=== PATIENT | male | born 1945 | race African-American/Black ===

== ENCOUNTER 2020-08-13 20:47 | Inpatient (IN) | payer OTHER ==
[~2020-08-13] VITALS: Ht 177.8 cm; Wt 78.0 kg
[2020-08-13] MEDS ORDERED: PANTOPRAZOLE 40 MG/10 ML VIAL INJ IV ONE (21:15)
[2020-08-13] MEDS ORDERED: PANTOPRAZOLE 40mg/50ML NS AE 50 ML IV ONE (21:15)
[2020-08-13] MEDS ORDERED: AMLO-496 PO (21:31)
[2020-08-13] MEDS ORDERED: CLON0.2T PO (21:35)
[2020-08-13] MEDS ORDERED: MET50T PO (21:35)
[2020-08-13] MEDS ORDERED: METF-370 PO (21:35)
[2020-08-13] MEDS ORDERED: LISI40TA11 PO (21:35)
[2020-08-13 22:18] LABS: Basophils # (auto) 0 10 ^3/uL (0-0.2); Basophils % (auto) 0.6 % (0.0-2.0); Eosinophils # (auto) 0 10 ^3/uL (0-0.8); Mean Corpuscular Volume 80.1 fL (80.0-100.0); Monocytes # (auto) 0.4 10 ^3/uL (0-1.3); Monocytes % (auto) 6.1 % (0.0-12.0); Nucleated Red Blood Cells % 0.1 %
[2020-08-13 22:20] LABS: Eosinophils % (auto) 0.7 % (0.0-7.0); Hematocrit 18.4 % (41.0-53.0); Lymphocytes # (auto) 0.8 10 ^3/uL (0.4-5.4); Lymphocytes % (auto) 12.8 % (10.0-50.0); Mean Corpuscular Hgb Conc. 36.2 g/dL (32.0-36.0); Neutrophils # (auto) 4.8 10 ^3/uL (1.6-8.6); Neutrophils % (auto) 79.8 % (37.0-80.0); Red Blood Cells 2.29 10^6/uL (4.5-5.90); Red Cell Distribution Width 15.6 % (11.8-14.3)
[2020-08-13 22:27] LABS: Hemoglobin 6.7 g/dL (13.5-17.5)
[2020-08-13 22:34] LABS: Potassium 4.4 mmol/L (3.5-5.1)
[2020-08-13 22:42] LABS: INR 1.07 (0.9-1.15)
[2020-08-13 22:45] LABS: Albumin 3.2 g/dL (3.4-5.0); BUN/Creatinine Ratio 8.3; Bilirubin, Total 0.8 mg/dL (0.2-1.0); Calcium 7.7 mg/dL (8.5-10.1); Total Protein 6.1 g/dL (6.4-8.2)
[2020-08-13] MEDS ORDERED: SODIUM CHL 3% 500 ML IV ONE (23:15)
[2020-08-13] MEDS ORDERED: SODIUM CHLORIDE 0.9% 1,000 ML IV ONE (23:30)
[2020-08-14] VITALS (12 sets, daily range): BP systolic 124–164; BP diastolic 62–96
[2020-08-14] MEDS ORDERED: NITROGLYCERIN 0.4 MG SL TAB SL PRN ×2 (00:30→10:45)
[2020-08-14] MEDS ORDERED: ONDANSETRON HCL 4 MG/2 ML VIAL IV PRN (00:30)
[2020-08-14] MEDS ORDERED: MORPHINE SULFATE INJECTION 2 MG/ML SYRG IV PRN ×3 (00:30→10:45)
[2020-08-14] MEDS ORDERED: SODIUM CHLORIDE 0.9% 1,000 ML IV ONE (00:30)
[2020-08-14] MEDS: CALCIUM GLUC 4.65meq/50ml D5AE 50 ML IV SCH ×2 (05:30→14:00)
[2020-08-14] MEDS ORDERED: SODIUM CHL 3% 500 ML IV ONE (07:30)
[2020-08-14] MEDS: PANTOPRAZOLE 40 MG/10 ML VIAL INJ IV SCH ×2 (08:34→22:09)
[2020-08-14 13:26] LABS: Basophils # (auto) 0 10 ^3/uL (0-0.2); Basophils % (auto) 0.3 % (0.0-2.0); Eosinophils # (auto) 0 10 ^3/uL (0-0.8); Hematocrit 28.4 % (41.0-53.0); Hemoglobin 9.9 g/dL (13.5-17.5); Lymphocytes # (auto) 0.2 10 ^3/uL (0.4-5.4); Lymphocytes % (auto) 2.5 % (10.0-50.0); Mean Corpuscular Hemoglobin 28.4 pg (28.0-32.0); Mean Corpuscular Hgb Conc. 34.7 g/dL (32.0-36.0); Mean Corpuscular Volume 81.8 fL (80.0-100.0); Monocytes # (auto) 0.3 10 ^3/uL (0-1.3); Monocytes % (auto) 4.4 % (0.0-12.0); Neutrophils # (auto) 6.6 10 ^3/uL (1.6-8.6); Neutrophils % (auto) 92.8 % (37.0-80.0); Red Blood Cells 3.48 10^6/uL (4.5-5.90); Red Cell Distribution Width 15.3 % (11.8-14.3); White Blood Cell 7.1 10^3/uL (4.4-10.8)
[2020-08-14 13:40] LABS: Protein, Urine 17.9 mg/dL (0.0-11.9)
[2020-08-14 13:49] LABS: Potassium 3.3 mmol/L (3.5-5.1)
[2020-08-14 13:58] LABS: Albumin 3.6 g/dL (3.4-5.0); BUN/Creatinine Ratio 9.3; Bilirubin, Total 1.6 mg/dL (0.2-1.0); Calcium 8.5 mg/dL (8.5-10.1); Total Protein 6.8 g/dL (6.4-8.2)
[2020-08-14 15:08] LABS: % Iron Saturation 28.1 % (20-55)
[2020-08-14 15:21] LABS: Folate (Folic Acid) 19.9 ng/mL (5.38-24)
[2020-08-14] MEDS ORDERED: DEXTROSE (50%) 50ML SYRG IV PRN (22:45)
[2020-08-14] MEDS: ACCU-CHEK COMFORT CURVE STRIP VI SCH (23:55)
[2020-08-14] MEDS: InsuLIN REG 1unit/0.01ml Soln (100units/ml) SC SCH (23:56)
[2020-08-15] MEDS ORDERED: dilTIAZem 25 MG/5 ML VIAL IV ONE (04:45)
[2020-08-15 05:00] VITALS: BP 142/84
[2020-08-15] MEDS: ACCU-CHEK COMFORT CURVE STRIP VI SCH ×3 (05:56→17:09)
[2020-08-15] MEDS: InsuLIN REG 1unit/0.01ml Soln (100units/ml) SC SCH ×3 (05:56→18:00)
[2020-08-15 06:05] LABS: Basophils # (auto) 0 10 ^3/uL (0-0.2); Basophils % (auto) 0.3 % (0.0-2.0); Eosinophils # (auto) 0 10 ^3/uL (0-0.8); Eosinophils % (auto) 0.1 % (0.0-7.0); Hematocrit 32.6 % (41.0-53.0); Hemoglobin 11.4 g/dL (13.5-17.5); Lymphocytes # (auto) 0.3 10 ^3/uL (0.4-5.4); Lymphocytes % (auto) 3.4 % (10.0-50.0); Mean Corpuscular Hemoglobin 28.8 pg (28.0-32.0); Mean Corpuscular Hgb Conc. 35.1 g/dL (32.0-36.0); Mean Corpuscular Volume 82.1 fL (80.0-100.0); Monocytes # (auto) 0.5 10 ^3/uL (0-1.3); Monocytes % (auto) 5.5 % (0.0-12.0); Neutrophils # (auto) 8.8 10 ^3/uL (1.6-8.6); Neutrophils % (auto) 90.7 % (37.0-80.0); Nucleated Red Blood Cells % 0.1 %; Red Blood Cells 3.97 10^6/uL (4.5-5.90); Red Cell Distribution Width 15.6 % (11.8-14.3); White Blood Cell 9.7 10^3/uL (4.4-10.8)
[2020-08-15 06:24] LABS: Calcium 8.9 mg/dL (8.5-10.1); Potassium 3.8 mmol/L (3.5-5.1)
[2020-08-15 06:27] LABS: BUN/Creatinine Ratio 7.5; Phosphorus 5.2 mg/dL (2.5-4.90)
[2020-08-15 09:00] VITALS: BP 137/85
[2020-08-15] MEDS ORDERED: AMIODARONE HCL 150 MG in D5W 5% 100 ML IV ONE (09:15)
[2020-08-15] MEDS ORDERED: AMIODARONE 450mg/250ml AE 250 ML IV SCH ×2 (09:30→15:30)
[2020-08-15] MEDS: PANTOPRAZOLE 40 MG/10 ML VIAL INJ IV SCH ×2 (11:02→22:23)
[2020-08-15] MEDS: SEVELAMER 800 MG TAB PO SCH ×2 (12:00→18:00)
[2020-08-15 13:00] VITALS: BP 127/85
[2020-08-15 17:00] VITALS: BP 132/83
[2020-08-15] MEDS: PIPERACILLIN-TAZOB 2.25GM 50 ML IV SCH (18:00)
[2020-08-15 20:00] VITALS: BP 120/85
[2020-08-16] VITALS (11 sets, daily range): BP systolic 116–147; BP diastolic 76–119
[2020-08-16] MEDS: PIPERACILLIN-TAZOB 2.25GM 50 ML IV SCH ×4 (00:27→18:09)
[2020-08-16] MEDS: ACCU-CHEK COMFORT CURVE STRIP VI SCH ×4 (00:28→18:08)
[2020-08-16] MEDS ORDERED: DIGOXIN (250MCG/ML) 2 ML AMPULE IV ONE ×2 (02:45→12:45)
[2020-08-16] MEDS ORDERED: AMIODARONE HCL 150 MG in D5W 5% 100 ML IV ONE (02:45)
[2020-08-16] MEDS ORDERED: AMIODARONE 450mg/250ml AE 250 ML IV SCH ×4 (03:00→21:00)
[2020-08-16] MEDS ORDERED: AMIODARONE HCL (50 MG/ ML) 3 ML VIAL IV ONE (03:25)
[2020-08-16 05:48] LABS: Basophils # (auto) 0 10 ^3/uL (0-0.2); Basophils % (auto) 0.5 % (0.0-2.0); Eosinophils # (auto) 0 10 ^3/uL (0-0.8); Eosinophils % (auto) 0.3 % (0.0-7.0); Hematocrit 29.4 % (41.0-53.0); Hemoglobin 10.5 g/dL (13.5-17.5); Lymphocytes # (auto) 0.5 10 ^3/uL (0.4-5.4); Lymphocytes % (auto) 6.3 % (10.0-50.0); Mean Corpuscular Hemoglobin 28.8 pg (28.0-32.0); Mean Corpuscular Hgb Conc. 35.8 g/dL (32.0-36.0); Mean Corpuscular Volume 80.6 fL (80.0-100.0); Monocytes # (auto) 0.5 10 ^3/uL (0-1.3); Monocytes % (auto) 6.4 % (0.0-12.0); Neutrophils # (auto) 7.3 10 ^3/uL (1.6-8.6); Neutrophils % (auto) 86.5 % (37.0-80.0); Red Blood Cells 3.64 10^6/uL (4.5-5.90); Red Cell Distribution Width 15.9 % (11.8-14.3); White Blood Cell 8.4 10^3/uL (4.4-10.8)
[2020-08-16] MEDS: InsuLIN REG 1unit/0.01ml Soln (100units/ml) SC SCH ×4 (06:00→18:00)
[2020-08-16 06:10] LABS: BUN/Creatinine Ratio 8.6; Calcium 8.2 mg/dL (8.5-10.1); Potassium 3.6 mmol/L (3.5-5.1)
[2020-08-16] MEDS: SEVELAMER 800 MG TAB PO SCH (08:55)
[2020-08-16] MEDS: PANTOPRAZOLE 40 MG/10 ML VIAL INJ IV SCH ×2 (08:56→21:27)
[2020-08-16] MEDS: AMIODARONE 450mg/250ml AE 250 ML IV SCH (21:18)
[2020-08-17] MEDS ORDERED: METOPROLOL TARTRATE 25 MG TAB PO ONE (03:15)
[2020-08-17] MEDS ORDERED: DIGOXIN (250MCG/ML) 2 ML AMPULE IV ONE (03:15)
[2020-08-17] MEDS: ACETAMINOPHEN 325 MG TAB PO PRN ×2 (03:31→21:49)
[2020-08-17] MEDS: AMIODARONE 450mg/250ml AE 250 ML IV SCH ×3 (04:55→19:58)
[2020-08-17 05:20] VITALS: BP 138/94
[2020-08-17 05:53] LABS: Basophils # (auto) 0 10 ^3/uL (0-0.2); Basophils % (auto) 0.3 % (0.0-2.0); Eosinophils # (auto) 0 10 ^3/uL (0-0.8); Eosinophils % (auto) 0.3 % (0.0-7.0); Hemoglobin 10.8 g/dL (13.5-17.5); Lymphocytes # (auto) 0.6 10 ^3/uL (0.4-5.4); Lymphocytes % (auto) 6.1 % (10.0-50.0); Mean Corpuscular Hemoglobin 28.6 pg (28.0-32.0); Mean Corpuscular Hgb Conc. 34.9 g/dL (32.0-36.0); Mean Corpuscular Volume 81.9 fL (80.0-100.0); Monocytes # (auto) 0.8 10 ^3/uL (0-1.3); Neutrophils # (auto) 7.9 10 ^3/uL (1.6-8.6); Neutrophils % (auto) 84.3 % (37.0-80.0); Nucleated Red Blood Cells % 0.1 %; Red Blood Cells 3.78 10^6/uL (4.5-5.90); Red Cell Distribution Width 15.4 % (11.8-14.3); White Blood Cell 9.4 10^3/uL (4.4-10.8)
[2020-08-17] MEDS: InsuLIN REG 1unit/0.01ml Soln (100units/ml) SC SCH ×4 (06:00→18:36)
[2020-08-17 06:08] LABS: BUN/Creatinine Ratio 7.8; Calcium 8.2 mg/dL (8.5-10.1); Potassium 3.8 mmol/L (3.5-5.1)
[2020-08-17] MEDS: ACCU-CHEK COMFORT CURVE STRIP VI SCH ×4 (06:18→18:27)
[2020-08-17] MEDS: PIPERACILLIN-TAZOB 2.25GM 50 ML IV SCH ×4 (06:19→12:42)
[2020-08-17 08:00] VITALS: BP_SYST 84; BP_SYST 90; BP_DIAS 60; BP_DIAS 71
[2020-08-17] MEDS: PANTOPRAZOLE 40 MG/10 ML VIAL INJ IV SCH ×2 (09:51→21:49)
[2020-08-17] MEDS: METOPROLOL TARTRATE 25 MG TAB PO SCH ×2 (09:56→19:59)
[2020-08-17] MEDS ORDERED: FUROSEMIDE 40 MG/4 ML VIAL IV ONE (10:45)
[2020-08-17] MEDS: ALBUMIN 25% 100 ML IV SCH ×2 (11:00→21:49)
[2020-08-17 13:00] VITALS: BP 122/81
[2020-08-17 17:25] VITALS: BP 118/73
[2020-08-17 21:00] VITALS: BP 130/76
[2020-08-17 21:30] VITALS: BP 126/66
[2020-08-17] MEDS ORDERED: MIDODRINE HCL 10 MG TAB PO SCH (22:00)
[2020-08-18] MEDS: ACCU-CHEK COMFORT CURVE STRIP VI SCH ×4 (00:12→17:43)
[2020-08-18] MEDS: PIPERACILLIN-TAZOB 2.25GM 50 ML IV SCH ×4 (00:12→18:30)
[2020-08-18] MEDS: AMIODARONE 450mg/250ml AE 250 ML IV SCH ×4 (03:21→23:10)
[2020-08-18 05:00] VITALS: BP 136/91
[2020-08-18] MEDS: InsuLIN REG 1unit/0.01ml Soln (100units/ml) SC SCH ×4 (05:24→17:43)
[2020-08-18 06:16] LABS: Basophils # (auto) 0 10 ^3/uL (0-0.2); Basophils % (auto) 0.3 % (0.0-2.0); Eosinophils # (auto) 0 10 ^3/uL (0-0.8); Eosinophils % (auto) 0.4 % (0.0-7.0); Hematocrit 31.6 % (41.0-53.0); Hemoglobin 10.9 g/dL (13.5-17.5); Lymphocytes # (auto) 0.7 10 ^3/uL (0.4-5.4); Lymphocytes % (auto) 6.7 % (10.0-50.0); Mean Corpuscular Hemoglobin 28.4 pg (28.0-32.0); Mean Corpuscular Hgb Conc. 34.4 g/dL (32.0-36.0); Mean Corpuscular Volume 82.5 fL (80.0-100.0); Monocytes # (auto) 0.8 10 ^3/uL (0-1.3); Monocytes % (auto) 7.8 % (0.0-12.0); Neutrophils # (auto) 8.9 10 ^3/uL (1.6-8.6); Neutrophils % (auto) 84.8 % (37.0-80.0); Red Blood Cells 3.83 10^6/uL (4.5-5.90); Red Cell Distribution Width 15.4 % (11.8-14.3); White Blood Cell 10.5 10^3/uL (4.4-10.8)
[2020-08-18 06:35] LABS: Potassium 3.5 mmol/L (3.5-5.1)
[2020-08-18 06:50] LABS: BUN/Creatinine Ratio 11.6; Calcium 7.9 mg/dL (8.5-10.1)
[2020-08-18 07:54] VITALS: BP 135/82
[2020-08-18 08:00] VITALS: BP 138/86
[2020-08-18] MEDS ORDERED: MIDODRINE HCL 10 MG TAB PO SCH (08:00)
[2020-08-18] MEDS: MIDODRINE HCL 10 MG TAB PO SCH ×2 (08:00→16:00)
[2020-08-18] MEDS ORDERED: DIGOXIN (250MCG/ML) 2 ML AMPULE IV ONE (08:30)
[2020-08-18] MEDS: PANTOPRAZOLE 40 MG/10 ML VIAL INJ IV SCH ×2 (08:53→21:56)
[2020-08-18] MEDS: METOPROLOL TARTRATE 25 MG TAB PO SCH ×2 (08:53→22:42)
[2020-08-18] MEDS ORDERED: SODIUM CHL 3% 300 ML IV ONE (13:15)
[2020-08-18] MEDS: ALBUMIN 25% 100 ML IV SCH ×2 (14:24→22:42)
[2020-08-18] MEDS: ACETAMINOPHEN 325 MG TAB PO PRN (14:25)
[2020-08-18 14:39] LABS: Basophils # (auto) 0 10 ^3/uL (0-0.2); Basophils % (auto) 0.4 % (0.0-2.0); Eosinophils # (auto) 0 10 ^3/uL (0-0.8); Eosinophils % (auto) 0.3 % (0.0-7.0); Hematocrit 30.8 % (41.0-53.0); Hemoglobin 10.6 g/dL (13.5-17.5); Lymphocytes # (auto) 0.5 10 ^3/uL (0.4-5.4); Lymphocytes % (auto) 4.7 % (10.0-50.0); Mean Corpuscular Hemoglobin 28.3 pg (28.0-32.0); Mean Corpuscular Hgb Conc. 34.3 g/dL (32.0-36.0); Mean Corpuscular Volume 82.6 fL (80.0-100.0); Monocytes # (auto) 0.9 10 ^3/uL (0-1.3); Monocytes % (auto) 7.8 % (0.0-12.0); Neutrophils % (auto) 86.8 % (37.0-80.0); Red Blood Cells 3.73 10^6/uL (4.5-5.90); Red Cell Distribution Width 15.4 % (11.8-14.3); White Blood Cell 11.5 10^3/uL (4.4-10.8)
[2020-08-18 14:56] LABS: Calcium 8.7 mg/dL (8.5-10.1); Potassium 3.7 mmol/L (3.5-5.1)
[2020-08-18 15:43] LABS: BUN/Creatinine Ratio 10.7
[2020-08-18 16:09] VITALS: BP 151/92
[2020-08-18] MEDS ORDERED: SODIUM CHL 3% 500 ML IV ONE (20:15)
[2020-08-18 22:00] VITALS: BP 135/97
[2020-08-19] VITALS (7 sets, daily range): BP systolic 91–154; BP diastolic 64–84
[2020-08-19] MEDS: ACCU-CHEK COMFORT CURVE STRIP VI SCH ×4 (00:30→17:25)
[2020-08-19] MEDS: ALBUMIN 25% 100 ML IV SCH (05:28)
[2020-08-19] MEDS: InsuLIN REG 1unit/0.01ml Soln (100units/ml) SC SCH ×4 (05:29→17:24)
[2020-08-19] MEDS: PIPERACILLIN-TAZOB 2.25GM 50 ML IV SCH ×3 (05:30→15:12)
[2020-08-19] MEDS: AMIODARONE 450mg/250ml AE 250 ML IV SCH ×2 (06:03→12:46)
[2020-08-19] MEDS: ACETAMINOPHEN 325 MG TAB PO PRN (06:03)
[2020-08-19 07:53] LABS: Basophils # (auto) 0.1 10 ^3/uL (0-0.2); Basophils % (auto) 0.4 % (0.0-2.0); Eosinophils # (auto) 0 10 ^3/uL (0-0.8); Eosinophils % (auto) 0.3 % (0.0-7.0); Hematocrit 27.4 % (41.0-53.0); Hemoglobin 9.4 g/dL (13.5-17.5); Lymphocytes # (auto) 0.7 10 ^3/uL (0.4-5.4); Lymphocytes % (auto) 5.5 % (10.0-50.0); Mean Corpuscular Hemoglobin 28.1 pg (28.0-32.0); Mean Corpuscular Hgb Conc. 34.2 g/dL (32.0-36.0); Mean Corpuscular Volume 82.3 fL (80.0-100.0); Monocytes # (auto) 0.8 10 ^3/uL (0-1.3); Monocytes % (auto) 6.8 % (0.0-12.0); Neutrophils # (auto) 10.4 10 ^3/uL (1.6-8.6); Red Blood Cells 3.33 10^6/uL (4.5-5.90); Red Cell Distribution Width 15.4 % (11.8-14.3)
[2020-08-19 08:14] LABS: Calcium 8.8 mg/dL (8.5-10.1); Potassium 3.5 mmol/L (3.5-5.1)
[2020-08-19 08:18] LABS: BUN/Creatinine Ratio 11.5
[2020-08-19] MEDS: MIDODRINE HCL 10 MG TAB PO SCH ×2 (08:45→16:56)
[2020-08-19] MEDS: PANTOPRAZOLE 40 MG/10 ML VIAL INJ IV SCH ×2 (10:44→22:20)
[2020-08-19] MEDS ORDERED: LIDOCAINE 2% JELLY 11ml (GLYDO) UR ONE (11:00)
[2020-08-19] MEDS: METOPROLOL TARTRATE 25 MG TAB PO SCH ×2 (11:37→22:22)
[2020-08-19] MEDS: DIGOXIN 0.125 MG TAB PO SCH (12:46)
[2020-08-19] MEDS: AMIODARONE HCL 200 MG TAB PO SCH (22:21)
[2020-08-20] MEDS: ACCU-CHEK COMFORT CURVE STRIP VI SCH ×4 (00:12→18:00)
[2020-08-20] MEDS: InsuLIN REG 1unit/0.01ml Soln (100units/ml) SC SCH ×4 (06:00→18:00)
[2020-08-20 06:05] LABS: Basophils # (auto) 0.1 10 ^3/uL (0-0.2); Basophils % (auto) 0.5 % (0.0-2.0); Eosinophils # (auto) 0 10 ^3/uL (0-0.8); Eosinophils % (auto) 0.3 % (0.0-7.0); Hematocrit 28.2 % (41.0-53.0); Hemoglobin 9.6 g/dL (13.5-17.5); Lymphocytes # (auto) 0.7 10 ^3/uL (0.4-5.4); Lymphocytes % (auto) 5.5 % (10.0-50.0); Mean Corpuscular Hemoglobin 28.1 pg (28.0-32.0); Mean Corpuscular Hgb Conc. 34.2 g/dL (32.0-36.0); Mean Corpuscular Volume 82.1 fL (80.0-100.0); Monocytes # (auto) 0.8 10 ^3/uL (0-1.3); Monocytes % (auto) 6.2 % (0.0-12.0); Neutrophils # (auto) 10.8 10 ^3/uL (1.6-8.6); Neutrophils % (auto) 87.5 % (37.0-80.0); Red Blood Cells 3.43 10^6/uL (4.5-5.90); Red Cell Distribution Width 15.8 % (11.8-14.3); White Blood Cell 12.3 10^3/uL (4.4-10.8)
[2020-08-20 06:26] LABS: BUN/Creatinine Ratio 14.3; Calcium 8.6 mg/dL (8.5-10.1); Potassium 3.6 mmol/L (3.5-5.1)
[2020-08-20 08:00] VITALS: BP 136/68
[2020-08-20] MEDS: MIDODRINE HCL 10 MG TAB PO SCH (08:00)
[2020-08-20] MEDS: DIGOXIN 0.125 MG TAB PO SCH (09:17)
[2020-08-20] MEDS: PANTOPRAZOLE 40 MG/10 ML VIAL INJ IV SCH ×2 (09:18→21:11)
[2020-08-20] MEDS: AMIODARONE HCL 200 MG TAB PO SCH (09:18)
[2020-08-20] MEDS: METOPROLOL TARTRATE 25 MG TAB PO SCH ×2 (09:19→21:11)
[2020-08-20] MEDS: AMIODARONE 450mg/250ml AE 250 ML IV SCH ×2 (10:43→18:44)
[2020-08-20 13:20] VITALS: BP 144/83
[2020-08-20 16:43] VITALS: BP 153/78
[2020-08-20] MEDS: PIPERACILLIN-TAZOB 3.375GM 100 ML IV SCH (21:11)
[2020-08-20 21:46] VITALS: BP 142/84
[2020-08-21] MEDS: AMIODARONE 450mg/250ml AE 250 ML IV SCH ×4 (01:02→23:19)
[2020-08-21] MEDS: PIPERACILLIN-TAZOB 3.375GM 100 ML IV SCH ×4 (02:56→21:09)
[2020-08-21 05:00] VITALS: BP 150/88
[2020-08-21 05:33] LABS: Basophils % (auto) 0.4 % (0.0-2.0); Eosinophils # (auto) 0 10 ^3/uL (0-0.8); Hemoglobin 9.5 g/dL (13.5-17.5); Lymphocytes # (auto) 0.6 10 ^3/uL (0.4-5.4); Mean Corpuscular Hemoglobin 27.8 pg (28.0-32.0); Neutrophils # (auto) 10.1 10 ^3/uL (1.6-8.6); Red Blood Cells 3.41 10^6/uL (4.5-5.90)
[2020-08-21 05:35] LABS: Basophils # (auto) 0 10 ^3/uL (0-0.2); Eosinophils % (auto) 0.3 % (0.0-7.0); Hematocrit 28.2 % (41.0-53.0); Lymphocytes % (auto) 4.9 % (10.0-50.0); Mean Corpuscular Hgb Conc. 33.6 g/dL (32.0-36.0); Mean Corpuscular Volume 82.7 fL (80.0-100.0); Monocytes # (auto) 0.9 10 ^3/uL (0-1.3); Monocytes % (auto) 7.6 % (0.0-12.0); Neutrophils % (auto) 86.8 % (37.0-80.0); Red Cell Distribution Width 16.1 % (11.8-14.3); White Blood Cell 11.6 10^3/uL (4.4-10.8)
[2020-08-21 05:58] LABS: BUN/Creatinine Ratio 17.1; Calcium 8.8 mg/dL (8.5-10.1); Potassium 3.6 mmol/L (3.5-5.1)
[2020-08-21] MEDS: InsuLIN REG 1unit/0.01ml Soln (100units/ml) SC SCH ×5 (06:00→23:18)
[2020-08-21] MEDS: ACCU-CHEK COMFORT CURVE STRIP VI SCH ×5 (06:10→23:18)
[2020-08-21 09:00] VITALS: BP 141/106
[2020-08-21] MEDS ORDERED: GADOTERATE MEG 7.5 MMOL/15ml INJ (0.5MMOL/ml) IV ONE (09:03)
[2020-08-21] MEDS: DIGOXIN 0.125 MG TAB PO SCH (09:50)
[2020-08-21] MEDS: PANTOPRAZOLE 40 MG/10 ML VIAL INJ IV SCH ×2 (09:51→21:09)
[2020-08-21] MEDS: METOPROLOL TARTRATE 25 MG TAB PO SCH ×2 (09:51→21:10)
[2020-08-21] MEDS ORDERED: METOPROLOL TARTRATE 50 MG TAB PO ONE (12:15)
[2020-08-21 12:47] VITALS: BP 151/83
[2020-08-21 16:33] VITALS: BP 143/90
[2020-08-21 20:00] VITALS: BP 156/92
[2020-08-21 22:26] VITALS: BP 156/92
[2020-08-22] MEDS: PIPERACILLIN-TAZOB 3.375GM 100 ML IV SCH ×5 (03:16→19:00)
[2020-08-22 05:00] VITALS: BP 163/81
[2020-08-22 05:14] LABS: Eosinophils # (auto) 0.1 10 ^3/uL (0-0.8); Hemoglobin 8.7 g/dL (13.5-17.5); Monocytes # (auto) 0.7 10 ^3/uL (0-1.3); Red Cell Distribution Width 16.2 % (11.8-14.3)
[2020-08-22 05:16] LABS: Basophils # (auto) 0 10 ^3/uL (0-0.2); Basophils % (auto) 0.5 % (0.0-2.0); Eosinophils % (auto) 0.7 % (0.0-7.0); Hematocrit 24.9 % (41.0-53.0); Lymphocytes # (auto) 0.5 10 ^3/uL (0.4-5.4); Lymphocytes % (auto) 5.7 % (10.0-50.0); Mean Corpuscular Hemoglobin 28.6 pg (28.0-32.0); Mean Corpuscular Hgb Conc. 34.8 g/dL (32.0-36.0); Mean Corpuscular Volume 82.3 fL (80.0-100.0); Neutrophils # (auto) 8.1 10 ^3/uL (1.6-8.6); Neutrophils % (auto) 86.1 % (37.0-80.0); Red Blood Cells 3.02 10^6/uL (4.5-5.90); White Blood Cell 9.4 10^3/uL (4.4-10.8)
[2020-08-22 05:31] LABS: Calcium 8.7 mg/dL (8.5-10.1); Potassium 3.6 mmol/L (3.5-5.1)
[2020-08-22 05:34] LABS: BUN/Creatinine Ratio 16.8
[2020-08-22] MEDS: InsuLIN REG 1unit/0.01ml Soln (100units/ml) SC SCH ×4 (06:00→23:42)
[2020-08-22] MEDS: ACCU-CHEK COMFORT CURVE STRIP VI SCH ×4 (06:00→23:42)
[2020-08-22] MEDS: AMIODARONE 450mg/250ml AE 250 ML IV SCH ×3 (06:35→21:58)
[2020-08-22 08:00] VITALS: BP 156/95
[2020-08-22 09:00] VITALS: BP 156/95
[2020-08-22] MEDS: PANTOPRAZOLE 40 MG/10 ML VIAL INJ IV SCH (09:23)
[2020-08-22] MEDS: METOPROLOL TARTRATE 25 MG TAB PO SCH ×2 (09:24→22:04)
[2020-08-22 12:00] VITALS: BP 150/80
[2020-08-22] MEDS ORDERED: LIDOCAINE VISCOUS 2% 15ML UD ONE (12:05)
[2020-08-22] MEDS ORDERED: diphenhdrAMINE HCL 50 MG/1 ML VL ONE (12:06)
[2020-08-22] MEDS ORDERED: fentaNYL CITRATE 100 MCG/2 ML VL ONE (12:06)
[2020-08-22] MEDS ORDERED: MIDAZOLAM HCL 5 MG/ML-1ML VIAL ONE (12:06)
[2020-08-22] MEDS ORDERED: LIDOCAINE VISCOUS 2% 15ML UD MT ONE (13:18)
[2020-08-22] MEDS ORDERED: MIDAZOLAM HCL 5 MG/ML-1ML VIAL IV ONE ×2 (13:24→13:27)
[2020-08-22] MEDS ORDERED: fentaNYL CITRATE 100 MCG/2 ML VL IV ONE ×2 (13:24→13:27)
[2020-08-22 17:00] VITALS: BP 115/71
[2020-08-23] VITALS (35 sets, daily range): BP systolic 99–183; BP diastolic 63–113
[2020-08-23] MEDS: PIPERACILLIN-TAZOB 3.375GM 100 ML IV SCH ×4 (00:38→17:44)
[2020-08-23] MEDS: AMIODARONE 450mg/250ml AE 250 ML IV SCH ×3 (05:07→20:30)
[2020-08-23 05:15] LABS: Basophils # (auto) 0.1 10 ^3/uL (0-0.2); Basophils % (auto) 0.7 % (0.0-2.0); Eosinophils # (auto) 0.1 10 ^3/uL (0-0.8); Lymphocytes # (auto) 0.6 10 ^3/uL (0.4-5.4); Lymphocytes % (auto) 7.2 % (10.0-50.0); Neutrophils # (auto) 6.8 10 ^3/uL (1.6-8.6); White Blood Cell 8.2 10^3/uL (4.4-10.8)
[2020-08-23 05:18] LABS: Hematocrit 27.1 % (41.0-53.0); Hemoglobin 9.4 g/dL (13.5-17.5); Mean Corpuscular Hemoglobin 28.5 pg (28.0-32.0); Mean Corpuscular Hgb Conc. 34.8 g/dL (32.0-36.0); Mean Corpuscular Volume 81.8 fL (80.0-100.0); Monocytes # (auto) 0.6 10 ^3/uL (0-1.3); Monocytes % (auto) 7.4 % (0.0-12.0); Neutrophils % (auto) 83.7 % (37.0-80.0); Nucleated Red Blood Cells % 0.1 %; Red Blood Cells 3.31 10^6/uL (4.5-5.90); Red Cell Distribution Width 16.3 % (11.8-14.3)
[2020-08-23 05:34] LABS: Calcium 8.8 mg/dL (8.5-10.1); Potassium 3.6 mmol/L (3.5-5.1)
[2020-08-23] MEDS: InsuLIN REG 1unit/0.01ml Soln (100units/ml) SC SCH ×2 (05:35→17:05)
[2020-08-23] MEDS: ACCU-CHEK COMFORT CURVE STRIP VI SCH ×2 (05:35→16:56)
[2020-08-23 05:36] LABS: BUN/Creatinine Ratio 16.7
[2020-08-23] MEDS: METOPROLOL TARTRATE 25 MG TAB PO SCH ×2 (10:00→22:00)
[2020-08-23] MEDS: PANTOPRAZOLE 40 MG/10 ML VIAL INJ IV SCH (10:49)
[2020-08-23] MEDS ORDERED: CIPROFLOXACIN 400MG/200ML 200 ML IV ONE (12:00)
[2020-08-23] MEDS ORDERED: SUCCINYLCHOLINE CHLORIDE 20 MG/ML 10ML VIAL IV ONE (12:53)
[2020-08-23] MEDS ORDERED: hydrALAZINE HCL 20 MG/ML VL IV PRN (13:00)
[2020-08-23] MEDS ORDERED: HYDROmorphone HCL 2 MG/ML VL IV PRN (13:00)
[2020-08-23] MEDS ORDERED: MIDAZOLAM HCL 2MG/2ML 2ml VIAL (1mg/ml) IV PRN (13:00)
[2020-08-23] MEDS ORDERED: ePHEDrine SULFATE 50 MG/ML AMP IV PRN (13:00)
[2020-08-23] MEDS ORDERED: MORPHINE SULFATE 4 MG/ML SYR/VIAL IV PRN (13:00)
[2020-08-23] MEDS ORDERED: LABETALOL HCL 5 MG/ML 4ML SYRINGE IV PRN (13:00)
[2020-08-23] MEDS ORDERED: ONDANSETRON HCL 4 MG/2 ML VIAL IV PRN (13:00)
[2020-08-23] MEDS ORDERED: fentaNYL CITRATE 100 MCG/2 ML VL ONE (13:27)
[2020-08-23] MEDS ORDERED: MIDAZOLAM HCL 2MG/2ML 2ml VIAL (1mg/ml) ONE (13:27)
[2020-08-23] MEDS ORDERED: MEPERIDINE HCL (50 MG/ML) 1 ML VIAL ONE (13:28)
[2020-08-23] MEDS ORDERED: PROPOFOL 10 MG/ML 20 ML IV ONE (13:29)
[2020-08-23] MEDS ORDERED: ONDANSETRON HCL 4 MG/2 ML VIAL ONE (13:57)
[2020-08-23] MEDS ORDERED: BELLADONNA ALKAL/OPIUM (16.2/30MG) RECT SUPP PR ONE (14:30)
[2020-08-23] MEDS ORDERED: NALOXONE HCL 0.4 MG/ML VIAL ONE (14:35)
[2020-08-23] MEDS: MIDAZOLAM DRIP 50 mg/50mL 50 ML IV SCH (17:43)
[2020-08-23] MEDS: hydrALAZINE HCL 20 MG/ML VL IV PRN (18:16)
[2020-08-23] MEDS ORDERED: fentaNYL Drip 2500mCg/250mlNS 250 ML IV SCH (18:30)
[2020-08-24] VITALS (83 sets, daily range): BP systolic 90–186; BP diastolic 56–105
[2020-08-24] MEDS: ACCU-CHEK COMFORT CURVE STRIP VI SCH ×4 (00:23→16:55)
[2020-08-24] MEDS: MIDAZOLAM DRIP 50 mg/50mL 50 ML IV SCH (00:30)
[2020-08-24] MEDS: PIPERACILLIN-TAZOB 3.375GM 100 ML IV SCH ×4 (01:05→18:22)
[2020-08-24] MEDS: AMIODARONE 450mg/250ml AE 250 ML IV SCH ×2 (04:00→07:22)
[2020-08-24] MEDS: InsuLIN REG 1unit/0.01ml Soln (100units/ml) SC SCH ×4 (05:18→16:55)
[2020-08-24 06:51] LABS: Eosinophils # (auto) 0.1 10 ^3/uL (0-0.8); Hemoglobin 8.7 g/dL (13.5-17.5); Monocytes # (auto) 1.1 10 ^3/uL (0-1.3); Nucleated Red Blood Cells % 0.2 %
[2020-08-24 06:54] LABS: Basophils # (auto) 0 10 ^3/uL (0-0.2); Basophils % (auto) 0.4 % (0.0-2.0); Eosinophils % (auto) 0.7 % (0.0-7.0); Hematocrit 25.7 % (41.0-53.0); Lymphocytes # (auto) 0.7 10 ^3/uL (0.4-5.4); Lymphocytes % (auto) 6.4 % (10.0-50.0); Mean Corpuscular Hgb Conc. 33.8 g/dL (32.0-36.0); Mean Corpuscular Volume 82.8 fL (80.0-100.0); Monocytes % (auto) 10.6 % (0.0-12.0); Neutrophils # (auto) 8.4 10 ^3/uL (1.6-8.6); Neutrophils % (auto) 81.9 % (37.0-80.0); Red Cell Distribution Width 16.4 % (11.8-14.3); White Blood Cell 10.3 10^3/uL (4.4-10.8)
[2020-08-24 07:06] LABS: Potassium 3.7 mmol/L (3.5-5.1)
[2020-08-24 07:16] LABS: BUN/Creatinine Ratio 14.1; Calcium 8.8 mg/dL (8.5-10.1)
[2020-08-24] MEDS: METOPROLOL TARTRATE 25 MG TAB PO SCH ×2 (07:22→20:47)
[2020-08-24] MEDS: PANTOPRAZOLE 40 MG/10 ML VIAL INJ IV SCH (07:45)
[2020-08-24] MEDS: AMIODARONE HCL 200 MG TAB PO SCH ×2 (10:00→20:47)
[2020-08-24] MEDS ORDERED: SODIUM CHLORIDE 0.9% 500 ML IV ONE (10:00)
[2020-08-24] MEDS: SODIUM CHLORIDE 0.9% 1,000 ML IV SCH (17:35)
[2020-08-24] MEDS: hydrALAZINE HCL 20 MG/ML VL IV PRN (18:22)
[2020-08-25] VITALS (15 sets, daily range): BP systolic 117–169; BP diastolic 69–87
[2020-08-25] MEDS: ACCU-CHEK COMFORT CURVE STRIP VI SCH ×3 (00:15→11:53)
[2020-08-25] MEDS: PIPERACILLIN-TAZOB 3.375GM 100 ML IV SCH ×2 (00:15→06:01)
[2020-08-25] MEDS: SODIUM CHLORIDE 0.9% 1,000 ML IV SCH (03:15)
[2020-08-25 05:54] LABS: Basophils # (auto) 0.1 10 ^3/uL (0-0.2); Eosinophils # (auto) 0.1 10 ^3/uL (0-0.8); Hemoglobin 8.4 g/dL (13.5-17.5); Monocytes # (auto) 0.5 10 ^3/uL (0-1.3)
[2020-08-25 05:55] LABS: Basophils % (auto) 0.7 % (0.0-2.0); Eosinophils % (auto) 1.4 % (0.0-7.0); Hematocrit 24.3 % (41.0-53.0); Lymphocytes # (auto) 0.4 10 ^3/uL (0.4-5.4); Lymphocytes % (auto) 6.1 % (10.0-50.0); Mean Corpuscular Hemoglobin 28.3 pg (28.0-32.0); Mean Corpuscular Hgb Conc. 34.5 g/dL (32.0-36.0); Mean Corpuscular Volume 81.8 fL (80.0-100.0); Neutrophils # (auto) 6.2 10 ^3/uL (1.6-8.6); Neutrophils % (auto) 84.8 % (37.0-80.0); Red Blood Cells 2.97 10^6/uL (4.5-5.90); Red Cell Distribution Width 16.5 % (11.8-14.3); White Blood Cell 7.4 10^3/uL (4.4-10.8)
[2020-08-25] MEDS: InsuLIN REG 1unit/0.01ml Soln (100units/ml) SC SCH ×3 (06:00→11:53)
[2020-08-25 06:20] LABS: BUN/Creatinine Ratio 13.3; Calcium 8.8 mg/dL (8.5-10.1); Potassium 3.8 mmol/L (3.5-5.1)
[2020-08-25] MEDS: METOPROLOL TARTRATE 25 MG TAB PO SCH (10:00)
[2020-08-25] MEDS: PANTOPRAZOLE 40 MG/10 ML VIAL INJ IV SCH (10:00)
[2020-08-25] MEDS: AMIODARONE HCL 200 MG TAB PO SCH (10:00)
== END 2020-08-25 13:51 | disposition home health service (06) | DRG 987 ==
LOC: EDBD 20:47 → ER 20:47 → TELE 20:48 → TELE-CENTR 08-14 19:18 → DOU IN ICU 08-23 16:22
PROVIDERS: ADMIT Internal Medicine; ATTEND Internal Medicine
PROC: 30233K1 Transfusion of Nonautologous Frozen Plasma into Peripheral Vein, Percutaneous Approach (ICD-10-PCS; principal; 2020-08-14)
PROC: 30233N1 Transfusion of Nonautologous Red Blood Cells into Peripheral Vein, Percutaneous Approach (ICD-10-PCS; 2020-08-14)
PROC: 0DB68ZX Excision of Stomach, Via Natural or Artificial Opening Endoscopic, Diagnostic (ICD-10-PCS; 2020-08-22)
PROC: 0DB88ZX Excision of Small Intestine, Via Natural or Artificial Opening Endoscopic, Diagnostic (ICD-10-PCS; 2020-08-22)
PROC: 0VT08ZZ Resection of Prostate, Via Natural or Artificial Opening Endoscopic (ICD-10-PCS; 2020-08-23)
PROC: 5A1945Z Respiratory Ventilation, 24-96 Consecutive Hours (ICD-10-PCS; 2020-08-23)
PROC: 0BH17EZ Insertion of Endotracheal Airway into Trachea, Via Natural or Artificial Opening (ICD-10-PCS; 2020-08-23)
PROC: 05HB33Z Insertion of Infusion Device into Right Basilic Vein, Percutaneous Approach (ICD-10-PCS; 2020-08-23)
DX: K29.71 Gastritis, unspecified, with bleeding (principal); N17.0 Acute kidney failure with tubular necrosis; J96.00 Acute respiratory failure, unspecified whether with hypoxia or hypercapnia; D62 Acute posthemorrhagic anemia; E87.1 Hypo-osmolality and hyponatremia; I13.0 Hypertensive heart and chronic kidney disease with heart failure and stage 1 through stage 4 chronic kidney disease, or unspecified chronic kidney disease; M79.3 Panniculitis, unspecified; N18.9 Chronic kidney disease, unspecified; E86.0 Dehydration; I50.9 Heart failure, unspecified; D3A.00 Benign carcinoid tumor of unspecified site; D13.7 Benign neoplasm of endocrine pancreas; D63.8 Anemia in other chronic diseases classified elsewhere; I48.91 Unspecified atrial fibrillation; N40.1 Benign prostatic hyperplasia with lower urinary tract symptoms; Z79.899 Other long term (current) drug therapy; Z79.84 Long term (current) use of oral hypoglycemic drugs; N20.0 Calculus of kidney; E11.22 Type 2 diabetes mellitus with diabetic chronic kidney disease; Z20.822 Contact with and (suspected) exposure to COVID-19; I95.9 Hypotension, unspecified
CPT/HCPCS: 36415; 36600; 43239; 45380; 71045; 74176; 74183; 76775; 80048; 80053; 80320; 82105; 82150; 82270; 82306; 82378; 82570; 82607; 82746; 82805; 82962; 83036; 83540; 83550; 83605; 83690; 83735; 83880; 83930; 83935; 83970; 84100; 84154; 84156; 84300; 84439; 84443; 84484; 84550; 85025; 85610; 85730; 86301; 86850; 86900; 86901; 86920; 87040; 87070; 87081; 87205; 87426; 93005; 93306; 93971; 94002; 94003; 96361; 96365; 96375; 97163; 99291; C9113; G0378; J0330; J0610; J1815; J2250; J2405; J2543; J2704; J7060; P9047

== ENCOUNTER 2020-09-01 11:14 | Inpatient (IN) | payer OTHER ==
[~2020-09-01] VITALS: Ht 172.7 cm; Wt 77.1 kg
[~2020-09-01 11:14] MED LIST: AMLO-496 PO; CLON0.2T PO; LISI40TA11 PO; MET50T PO; METF-370 PO
[2020-09-01 12:14] LABS: Basophils # (auto) 0 10 ^3/uL (0-0.2); Basophils % (auto) 0.8 % (0.0-2.0); Eosinophils # (auto) 0.1 10 ^3/uL (0-0.8); Lymphocytes # (auto) 0.6 10 ^3/uL (0.4-5.4); Neutrophils # (auto) 3.9 10 ^3/uL (1.6-8.6); Red Cell Distribution Width 16.3 % (11.8-14.3)
[2020-09-01 12:16] LABS: Eosinophils % (auto) 1.1 % (0.0-7.0); Hematocrit 19.5 % (41.0-53.0); Lymphocytes % (auto) 11.8 % (10.0-50.0); Mean Corpuscular Hemoglobin 27.7 pg (28.0-32.0); Mean Corpuscular Hgb Conc. 34.3 g/dL (32.0-36.0); Mean Corpuscular Volume 80.7 fL (80.0-100.0); Monocytes # (auto) 0.4 10 ^3/uL (0-1.3); Monocytes % (auto) 7.5 % (0.0-12.0); Neutrophils % (auto) 78.8 % (37.0-80.0); Platelet Count (auto) 445 10^3/uL (140-450); Red Blood Cells 2.42 10^6/uL (4.5-5.90)
[2020-09-01 12:19] LABS: Hemoglobin 6.7 g/dL (13.5-17.5)
[2020-09-01] MEDS ORDERED: PANTOPRAZOLE 40mg/50ML NS AE 50 ML IV ONE (12:30)
[2020-09-01] MEDS ORDERED: PANTOPRAZOLE 40 MG/10 ML VIAL INJ IV ONE (12:30)
[2020-09-01 12:37] LABS: Calcium 8.5 mg/dL (8.5-10.1); Potassium 3.2 mmol/L (3.5-5.1)
[2020-09-01 12:42] LABS: BUN/Creatinine Ratio 15.4; Bilirubin, Total 0.4 mg/dL (0.2-1.0); Total Protein 6.7 g/dL (6.4-8.2)
[2020-09-01] MEDS ORDERED: SODIUM CHLORIDE 0.9% 1,000 ML IVB ONE (13:15)
[2020-09-01 13:46] LABS: Magnesium 2.1 mg/dL (1.6-2.6)
[2020-09-01 13:54] LABS: INR 1.08 (0.9-1.15); Partial Thromboplastin Time 25.3 sec (23.0-31.2)
[2020-09-01 14:50] VITALS: BP 143/87
[2020-09-01 15:05] VITALS: BP 133/86
[2020-09-01 15:51] LABS: Urine Bacteria FEW /hpf (None Seen); Urine Blood 3+ /uL (Negative); Urine Hyaline Cast FEW /lpf (0 - 2); Urine Specific Gravity 1.003 (1.001-1.035); Urine WBC 2 /hpf (0 - 3)
[2020-09-01] MEDS ORDERED: METOPROLOL TARTRATE 50 MG TAB PO PRN (16:15)
[2020-09-01] MEDS ORDERED: MORPHINE SULF INJ 2 MG/ML SYRINGE 1ML IV PRN ×2 (16:15)
[2020-09-01] MEDS ORDERED: NITROGLYCERIN 0.4 MG SL TAB SL PRN (16:15)
[2020-09-01] MEDS ORDERED: ONDANSETRON HCL 4 MG/2 ML VIAL IV PRN (16:15)
[2020-09-01] MEDS ORDERED: DEXTROSE (50%) 50ML SYRG IV PRN (16:15)
[2020-09-01] MEDS: SODIUM CHLORIDE 0.9% 1,000 ML IV SCH ×2 (16:36→22:55)
[2020-09-01] MEDS: InsuLIN REG 1unit/0.01ml Soln (100units/ml) SC SCH ×2 (16:44→22:00)
[2020-09-01] MEDS: ACCU-CHEK COMFORT CURVE STRIP VI SCH ×2 (16:44→22:02)
[2020-09-01 17:00] VITALS: BP 148/82
[2020-09-01 17:15] VITALS: BP 145/75
[2020-09-01 17:30] VITALS: BP 153/82
[2020-09-01 21:40] LABS: Basophils # (auto) 0 10 ^3/uL (0-0.2); Lymphocytes # (auto) 0.7 10 ^3/uL (0.4-5.4); Mean Corpuscular Volume 80.9 fL (80.0-100.0); Nucleated Red Blood Cells % 0.1 %
[2020-09-01 21:42] LABS: Eosinophils # (auto) 0.1 10 ^3/uL (0-0.8); Eosinophils % (auto) 1.1 % (0.0-7.0); Hematocrit 28.1 % (41.0-53.0); Hemoglobin 9.7 g/dL (13.5-17.5); Lymphocytes % (auto) 14.2 % (10.0-50.0); Mean Corpuscular Hgb Conc. 34.6 g/dL (32.0-36.0); Monocytes # (auto) 0.3 10 ^3/uL (0-1.3); Monocytes % (auto) 6.9 % (0.0-12.0); Neutrophils # (auto) 3.9 10 ^3/uL (1.6-8.6); Neutrophils % (auto) 76.8 % (37.0-80.0); Platelet Count (auto) 456 10^3/uL (140-450); Red Blood Cells 3.48 10^6/uL (4.5-5.90); Red Cell Distribution Width 16.1 % (11.8-14.3)
[2020-09-01] MEDS: PANTOPRAZOLE 40mg/50ML NS AE 50 ML IV SCH (22:30)
[2020-09-02 00:50] VITALS: BP 147/90
[2020-09-02] MEDS: PANTOPRAZOLE 40mg/50ML NS AE 50 ML IV SCH ×5 (02:41→22:19)
[2020-09-02 05:00] VITALS: BP 150/91
[2020-09-02] MEDS: SODIUM CHLORIDE 0.9% 1,000 ML IV SCH ×3 (05:40→13:15)
[2020-09-02] MEDS: ACCU-CHEK COMFORT CURVE STRIP VI SCH ×4 (06:11→21:18)
[2020-09-02] MEDS: InsuLIN REG 1unit/0.01ml Soln (100units/ml) SC SCH ×4 (06:11→21:18)
[2020-09-02] MEDS ORDERED: GOLYTELY 4L KIT PO ONE (08:45)
[2020-09-02 08:46] VITALS: BP 145/86
[2020-09-02] MEDS ORDERED: PANTOPRAZOLE 40 MG/10 ML VIAL INJ IV SCH (10:00)
[2020-09-02] MEDS: amLODIPine BESYLATE 5 MG TAB PO SCH (10:25)
[2020-09-02 10:57] LABS: Basophils # (auto) 0 10 ^3/uL (0-0.2); Eosinophils # (auto) 0 10 ^3/uL (0-0.8); Lymphocytes # (auto) 0.6 10 ^3/uL (0.4-5.4); Monocytes # (auto) 0.4 10 ^3/uL (0-1.3); White Blood Cell 5.8 10^3/uL (4.4-10.8)
[2020-09-02 10:59] LABS: Basophils % (auto) 0.6 % (0.0-2.0); Eosinophils % (auto) 0.4 % (0.0-7.0); Hematocrit 29.4 % (41.0-53.0); Hemoglobin 9.9 g/dL (13.5-17.5); Lymphocytes % (auto) 10.4 % (10.0-50.0); Mean Corpuscular Hemoglobin 27.8 pg (28.0-32.0); Mean Corpuscular Hgb Conc. 33.8 g/dL (32.0-36.0); Mean Corpuscular Volume 82.1 fL (80.0-100.0); Monocytes % (auto) 7.7 % (0.0-12.0); Neutrophils # (auto) 4.7 10 ^3/uL (1.6-8.6); Neutrophils % (auto) 80.9 % (37.0-80.0); Platelet Count (auto) 517 10^3/uL (140-450); Red Blood Cells 3.58 10^6/uL (4.5-5.90); Red Cell Distribution Width 16.2 % (11.8-14.3)
[2020-09-02 11:16] LABS: Albumin 3.1 g/dL (3.4-5.0); BUN/Creatinine Ratio 9.8; Bilirubin, Total 0.5 mg/dL (0.2-1.0); Total Protein 7.3 g/dL (6.4-8.2)
[2020-09-02 13:12] VITALS: BP 131/86
[2020-09-02 16:45] VITALS: BP 138/86
[2020-09-02 22:00] VITALS: BP 149/99
[2020-09-03] MEDS: PANTOPRAZOLE 40mg/50ML NS AE 50 ML IV SCH ×2 (03:42→09:51)
[2020-09-03 05:00] VITALS: BP 133/93
[2020-09-03 05:25] LABS: Basophils # (auto) 0 10 ^3/uL (0-0.2); Hemoglobin 10.4 g/dL (13.5-17.5); White Blood Cell 5.5 10^3/uL (4.4-10.8)
[2020-09-03 05:27] LABS: Basophils % (auto) 0.9 % (0.0-2.0); Eosinophils # (auto) 0 10 ^3/uL (0-0.8); Eosinophils % (auto) 0.6 % (0.0-7.0); Hematocrit 30.3 % (41.0-53.0); Lymphocytes % (auto) 18.3 % (10.0-50.0); Mean Corpuscular Hemoglobin 27.8 pg (28.0-32.0); Mean Corpuscular Hgb Conc. 34.2 g/dL (32.0-36.0); Mean Corpuscular Volume 81.3 fL (80.0-100.0); Monocytes # (auto) 0.4 10 ^3/uL (0-1.3); Monocytes % (auto) 7.8 % (0.0-12.0); Neutrophils % (auto) 72.4 % (37.0-80.0); Platelet Count (auto) 515 10^3/uL (140-450); Red Blood Cells 3.73 10^6/uL (4.5-5.90); Red Cell Distribution Width 16.4 % (11.8-14.3)
[2020-09-03 05:41] LABS: Albumin 3.2 g/dL (3.4-5.0); BUN/Creatinine Ratio 6.1; Calcium 8.7 mg/dL (8.5-10.1)
[2020-09-03 05:43] LABS: Bilirubin, Total 0.7 mg/dL (0.2-1.0); Total Protein 7.3 g/dL (6.4-8.2)
[2020-09-03] MEDS ORDERED: GOLYTELY 4L KIT PO ONE (06:00)
[2020-09-03] MEDS: InsuLIN REG 1unit/0.01ml Soln (100units/ml) SC SCH ×2 (06:12→11:30)
[2020-09-03] MEDS: ACCU-CHEK COMFORT CURVE STRIP VI SCH ×2 (06:12→11:46)
[2020-09-03] MEDS ORDERED: LIDOCAINE VISCOUS 2% 15ML UD ONE (08:00)
[2020-09-03] MEDS ORDERED: diphenhdrAMINE HCL 50 MG/1 ML VL ONE (08:01)
[2020-09-03] MEDS ORDERED: MIDAZOLAM HCL 5 MG/ML-1ML VIAL ONE (08:01)
[2020-09-03] MEDS ORDERED: fentaNYL CITRATE 100 MCG/2 ML VL ONE (08:01)
[2020-09-03] MEDS ORDERED: MIDAZOLAM HCL 5 MG/ML-1ML VIAL IV ONE ×3 (08:44→08:56)
[2020-09-03] MEDS ORDERED: fentaNYL CITRATE 100 MCG/2 ML VL IV ONE ×3 (08:44→08:56)
[2020-09-03 09:00] VITALS: BP 149/99
[2020-09-03 09:45] VITALS: BP 136/88
[2020-09-03] MEDS: SODIUM CHLORIDE 0.9% 1,000 ML IV SCH (09:52)
[2020-09-03] MEDS: amLODIPine BESYLATE 5 MG TAB PO SCH (09:52)
[2020-09-03] MEDS ORDERED: PANT40TA2 PO (10:36)
[2020-09-03] MEDS ORDERED: ASCO500T11 PO (10:36)
[2020-09-03] MEDS ORDERED: FERR-20 PO (10:36)
[2020-09-03] MEDS ORDERED: POTA1TAB4 PO (11:18)
[2020-09-03] MEDS ORDERED: POTASSIUM CHL 20 Meq TABLET PO ONE (11:30)
[2020-09-03 13:00] VITALS: BP 138/90
[2020-09-03 13:13] VITALS: BP 137/74
== END 2020-09-03 14:18 | disposition home health service (06) | DRG 393 ==
LOC: ER 11:14 → TELE 16:22 → TELE-CENTR 23:55
PROVIDERS: ADMIT Internal Medicine; ATTEND Internal Medicine
PROC: 30233N1 Transfusion of Nonautologous Red Blood Cells into Peripheral Vein, Percutaneous Approach (ICD-10-PCS; 2020-09-01)
PROC: 0DB68ZX Excision of Stomach, Via Natural or Artificial Opening Endoscopic, Diagnostic (ICD-10-PCS; principal; 2020-09-03 08:37)
PROC: 0DBK8ZX Excision of Ascending Colon, Via Natural or Artificial Opening Endoscopic, Diagnostic (ICD-10-PCS; 2020-09-03 08:37)
DX: K64.8 Other hemorrhoids (principal); K29.71 Gastritis, unspecified, with bleeding; D62 Acute posthemorrhagic anemia; I50.32 Chronic diastolic (congestive) heart failure; I13.0 Hypertensive heart and chronic kidney disease with heart failure and stage 1 through stage 4 chronic kidney disease, or unspecified chronic kidney disease; N17.9 Acute kidney failure, unspecified; E87.1 Hypo-osmolality and hyponatremia; K63.5 Polyp of colon; K64.4 Residual hemorrhoidal skin tags; E86.9 Volume depletion, unspecified; N18.32 Chronic kidney disease, stage 3b; I48.91 Unspecified atrial fibrillation; E11.22 Type 2 diabetes mellitus with diabetic chronic kidney disease; I25.2 Old myocardial infarction; Z79.82 Long term (current) use of aspirin; Z87.442 Personal history of urinary calculi; Z20.822 Contact with and (suspected) exposure to COVID-19
CPT/HCPCS: 36415; 36430; 43239; 45380; 71045; 74176; 80053; 81001; 82150; 82962; 83690; 83735; 85025; 85610; 85730; 86850; 86900; 86901; 86920; 87081; 87426; 93005; 96365; 96375; 99291; C9113; G0378; J2250

== ENCOUNTER 2024-01-16 14:01 | Inpatient (IN) | payer OTHER ==
[~2024-01-16] VITALS: Ht 175.3 cm; Wt 66.3 kg
[~2024-01-16 14:01] MED LIST changes: -AMLO-496 PO; +AMLO1TAB23 PO; +ASCO500T11 PO; +FERR325T24 PO; -LISI40TA11 PO; +LISI40TA16 PO; +PANT40TA2 PO; +POTA1TAB4 PO
[2024-01-16 15:58] LABS: Basophils # (auto) 0 10 ^3/uL (0-0.2); Eosinophils # (auto) 0 10 ^3/uL (0-0.8); Eosinophils % (auto) 0.1 % (0.0-7.0); Hemoglobin 10.2 g/dL (13.5-17.5); Lymphocytes # (auto) 0.7 10 ^3/uL (0.4-5.4); Monocytes # (auto) 0.3 10 ^3/uL (0-1.3)
[2024-01-16 16:00] LABS: Basophils % (auto) 0.5 % (0.0-2.0); Hematocrit 29.9 % (41.0-53.0); Lymphocytes % (auto) 9.4 % (10.0-50.0); Mean Corpuscular Hemoglobin 27.2 pg (28.0-32.0); Mean Corpuscular Hgb Conc. 34.3 g/dL (32.0-36.0); Mean Corpuscular Volume 79.4 fL (80.0-100.0); Monocytes % (auto) 3.8 % (0.0-12.0); Neutrophils # (auto) 6.5 10 ^3/uL (1.6-8.6); Neutrophils % (auto) 86.2 % (37.0-80.0); Nucleated Red Blood Cells % 0.1 %; Red Blood Cells 3.77 10^6/uL (4.5-5.90); Red Cell Distribution Width 16.3 % (11.8-14.3); White Blood Cell 7.6 10^3/uL (4.4-10.8)
[2024-01-16 16:16] LABS: Albumin 3.2 g/dL (3.2-4.8); Alkaline Phosphatase 275 U/L (46-116); Anion Gap 7 (5-15); BUN/Creatinine Ratio 13.6 (10.0-20.0); Blood Urea Nitrogen 22 mg/dL (9-23); Calcium 8.7 mg/dL (8.7-10.4); Carbon Dioxide 25 mmol/L (20-30); Chloride 97 mmol/L (98-107); Glucose 92 mg/dL (74-106); Lipase 71 U/L (12-53); Potassium 2.7 mmol/L (3.5-5.1); Sodium 129 mmol/L (136-145)
[2024-01-16] MEDS: SODIUM CHLORIDE 0.9% 1,000 ML IV ONE ×2 (16:16→20:44)
[2024-01-16] MEDS: LACTULOSE 20Gm/30ML SOLN PO ONE (16:16)
[2024-01-16 16:17] LABS: Bilirubin, Total 2.4 mg/dL (0.2-1.0); Total Protein 5.7 g/dL (5.7-8.2)
[2024-01-16 16:39] LABS: Alanine Aminotransferase 1782 U/L (7-40)
[2024-01-16 19:15] VITALS: PULSE 53; RESP 16; O2SAT 98
[2024-01-16] MEDS: POTASSIUM EFFERVESENT TAB 25 MEQ PO ONE (20:33)
[2024-01-16] MEDS: POTASSIUM CHL 20MEQ/100ML 100 ML IV SCH (20:44)
[2024-01-16] MEDS ORDERED: MORPHINE SULFATE INJ 2 MG/ml SYRG IV PRN (21:15)
[2024-01-16] MEDS ORDERED: NITROGLYCERIN 0.4 MG SL TAB SL PRN (21:15)
[2024-01-16] MEDS: GOLYTELY 4L KIT PO ONE (22:00)
[2024-01-17 04:07] LABS: Basophils # (auto) 0 10 ^3/uL (0-0.2); Basophils % (auto) 0.2 % (0.0-2.0); Eosinophils # (auto) 0 10 ^3/uL (0-0.8); Eosinophils % (auto) 0.1 % (0.0-7.0); Hematocrit 33.7 % (41.0-53.0); Hemoglobin 11.6 g/dL (13.5-17.5); Lymphocytes # (auto) 0.6 10 ^3/uL (0.4-5.4); Lymphocytes % (auto) 6.3 % (10.0-50.0); Mean Corpuscular Hemoglobin 27.1 pg (28.0-32.0); Mean Corpuscular Hgb Conc. 34.4 g/dL (32.0-36.0); Mean Corpuscular Volume 78.9 fL (80.0-100.0); Monocytes # (auto) 0.4 10 ^3/uL (0-1.3); Monocytes % (auto) 4.5 % (0.0-12.0); Neutrophils # (auto) 8.8 10 ^3/uL (1.6-8.6); Neutrophils % (auto) 88.9 % (37.0-80.0); Nucleated Red Blood Cells % 0.1 %; Red Blood Cells 4.28 10^6/uL (4.5-5.90); Red Cell Distribution Width 16.3 % (11.8-14.3); White Blood Cell 9.9 10^3/uL (4.4-10.8)
[2024-01-17 04:30] LABS: Albumin 3.1 g/dL (3.2-4.8); Alkaline Phosphatase 282 U/L (46-116); Anion Gap 7 (5-15); BUN/Creatinine Ratio 16.4 (10.0-20.0); Blood Urea Nitrogen 20 mg/dL (9-23); Calcium 8.6 mg/dL (8.7-10.4); Carbon Dioxide 25 mmol/L (20-30); Chloride 99 mmol/L (98-107); Glucose 87 mg/dL (74-106); Potassium 2.8 mmol/L (3.5-5.1); Sodium 131 mmol/L (136-145)
[2024-01-17 04:31] LABS: Bilirubin, Total 3.1 mg/dL (0.2-1.0); Total Protein 5.7 g/dL (5.7-8.2)
[2024-01-17 04:42] LABS: Aspartate Aminotransferase 3169 U/L (13-40)
[2024-01-17 04:52] LABS: Alanine Aminotransferase 1709 U/L (7-40)
[2024-01-17 05:29] VITALS: BP 113/74; PULSE 57; RESP 16; RESP 18; TEMP 98; O2SAT 97
[2024-01-17 05:34] LABS: Urine Bacteria None Seen /hpf (None Seen)
[2024-01-17 05:52] LABS: Urine Blood Negative /uL (Negative); Urine Clarity Clear (Clear); Urine Color Yellow (Yellow); Urine Protein, UAD 1+ (Negative); Urine Specific Gravity 1.013 (1.001-1.035); Urine Urobilinogen 4 mg/dL (Negative); Urine WBC 2 /hpf (0 - 3); Urine pH 6.5 (5.0-9.0)
[2024-01-17 08:00] VITALS: PULSE 60; RESP 18
[2024-01-17 08:30] VITALS: BP 115/74; PULSE 60; RESP 19; TEMP 98.1; O2SAT 97
[2024-01-17] MEDS: cefTRIAXone 1GM/50ML D5W 50 ML IV SCH (09:05)
[2024-01-17 12:30] VITALS: BP 118/69; PULSE 76; RESP 18; TEMP 98.3; O2SAT 95
[2024-01-17 17:30] VITALS: BP 120/66; PULSE 79; RESP 19; TEMP 98.1; O2SAT 96
[2024-01-17 21:00] VITALS: BP 143/80; PULSE 61; RESP 18; TEMP 98.6; O2SAT 94
[2024-01-18] VITALS (7 sets, daily range): BP systolic 118–149; BP diastolic 74–86; PULSE 59–85; RESP 15–20; TEMP 97.7–98.6; O2SAT 95–98
[2024-01-18 08:46] LABS: Hepatitis B Surface Antigen Negative (Negative)
[2024-01-18 09:07] LABS: Hepatitis A Ab IgM Negative
[2024-01-18 09:08] LABS: Hepatitis B Core IgM Negative; Hepatitis C Antibody Negative (Negative)
[2024-01-18 10:50] LABS: Basophils # (auto) 0 10 ^3/uL (0-0.2); Basophils % (auto) 0.4 % (0.0-2.0); Eosinophils # (auto) 0 10 ^3/uL (0-0.8); Eosinophils % (auto) 0.2 % (0.0-7.0); Hematocrit 30.1 % (41.0-53.0); Hemoglobin 10.4 g/dL (13.5-17.5); Lymphocytes # (auto) 0.5 10 ^3/uL (0.4-5.4); Lymphocytes % (auto) 7.3 % (10.0-50.0); Mean Corpuscular Hemoglobin 27.3 pg (28.0-32.0); Mean Corpuscular Hgb Conc. 34.3 g/dL (32.0-36.0); Mean Corpuscular Volume 79.4 fL (80.0-100.0); Monocytes # (auto) 0.4 10 ^3/uL (0-1.3); Monocytes % (auto) 5.3 % (0.0-12.0); Neutrophils # (auto) 5.9 10 ^3/uL (1.6-8.6); Neutrophils % (auto) 86.8 % (37.0-80.0); Nucleated Red Blood Cells % 0.2 %; Red Blood Cells 3.79 10^6/uL (4.5-5.90); Red Cell Distribution Width 16.3 % (11.8-14.3); White Blood Cell 6.7 10^3/uL (4.4-10.8)
[2024-01-18 10:59] LABS: Albumin 2.8 g/dL (3.2-4.8); Alkaline Phosphatase 277 U/L (46-116); Anion Gap 9 (5-15); BUN/Creatinine Ratio 14.4 (10.0-20.0); Bilirubin, Total 2.8 mg/dL (0.2-1.0); Blood Urea Nitrogen 14 mg/dL (9-23); Calcium 8.3 mg/dL (8.7-10.4); Carbon Dioxide 25 mmol/L (20-30); Chloride 101 mmol/L (98-107); Glucose 76 mg/dL (74-106); Potassium 2.7 mmol/L (3.5-5.1); Sodium 135 mmol/L (136-145); Total Protein 5.1 g/dL (5.7-8.2)
[2024-01-18 11:12] LABS: Alanine Aminotransferase 1167 U/L (7-40); Aspartate Aminotransferase 1627 U/L (13-40)
[2024-01-18] MEDS: POTASSIUM CHL 20MEQ/100ML 100 ML IV SCH ×2 (14:13→23:19)
[2024-01-18] MEDS: MAGNESIUM OXIDE 400 MG TAB PO ONE (16:33)
[2024-01-18 18:25] LABS: Salicylate < 3.0 mg/dL (2.8-20.0)
[2024-01-19] VITALS (7 sets, daily range): BP systolic 118–160; BP diastolic 79–92; PULSE 67–78; RESP 17–18; TEMP 98.1–98.7; O2SAT 95–97
[2024-01-19 03:50] LABS: Amphetamine Screen, Urine Neg (NEGATIVE); Benzodiazephine Screen, Urine Neg (NEGATIVE)
[2024-01-19 03:51] LABS: Barbiturate Scree,Urine Neg (NEGATIVE); Cannabinoid Screen, Urine Neg (NEGATIVE); Cocaine Screen, Urine Neg (NEGATIVE); Opiate Scree,Urine Neg (NEGATIVE); Phencyclidine Screen, Urine Neg (NEGATIVE)
[2024-01-19 10:20] LABS: Basophils # (auto) 0 10 ^3/uL (0-0.2); Eosinophils # (auto) 0 10 ^3/uL (0-0.8); Lymphocytes # (auto) 0.4 10 ^3/uL (0.4-5.4); Mean Corpuscular Volume 79.2 fL (80.0-100.0); Monocytes # (auto) 0.5 10 ^3/uL (0-1.3); Nucleated Red Blood Cells % 0.3 %
[2024-01-19 10:23] LABS: Basophils % (auto) 0.6 % (0.0-2.0); Eosinophils % (auto) 0.5 % (0.0-7.0); Hematocrit 31.7 % (41.0-53.0); Hemoglobin 10.6 g/dL (13.5-17.5); Lymphocytes % (auto) 6.2 % (10.0-50.0); Mean Corpuscular Hemoglobin 26.4 pg (28.0-32.0); Mean Corpuscular Hgb Conc. 33.4 g/dL (32.0-36.0); Monocytes % (auto) 7.3 % (0.0-12.0); Neutrophils # (auto) 5.5 10 ^3/uL (1.6-8.6); Neutrophils % (auto) 85.4 % (37.0-80.0); Red Cell Distribution Width 16.8 % (11.8-14.3); White Blood Cell 6.4 10^3/uL (4.4-10.8)
[2024-01-19 10:32] LABS: Alanine Aminotransferase 899 U/L (7-40); Alkaline Phosphatase 306 U/L (46-116); Anion Gap 6 (5-15); Aspartate Aminotransferase 990 U/L (13-40); BUN/Creatinine Ratio 12.1 (10.0-20.0); Bilirubin, Total 2.5 mg/dL (0.2-1.0); Blood Urea Nitrogen 12 mg/dL (9-23); Calcium 8.2 mg/dL (8.7-10.4); Carbon Dioxide 25 mmol/L (20-30); Chloride 105 mmol/L (98-107); Glucose 85 mg/dL (74-106); Potassium 3.2 mmol/L (3.5-5.1); Sodium 136 mmol/L (136-145)
[2024-01-19 10:33] LABS: Total Protein 5.3 g/dL (5.7-8.2)
[2024-01-19] MEDS ORDERED: DOCUSATE SOD 100 MG CAP PO PRN (11:00)
[2024-01-19] MEDS: POTASSIUM EFFERVESENT TAB 25 MEQ PO ONE (12:15)
[2024-01-19 13:07] LABS: Anti-Nuclear Antibody Direct Negative (Negative)
[2024-01-20] VITALS (7 sets, daily range): BP systolic 98–158; BP diastolic 45–100; PULSE 66–79; RESP 16–18; TEMP 98–98.6; O2SAT 94–97
[2024-01-20 06:53] LABS: Basophils # (auto) 0 10 ^3/uL (0-0.2); Eosinophils # (auto) 0.1 10 ^3/uL (0-0.8); Lymphocytes # (auto) 0.7 10 ^3/uL (0.4-5.4); Monocytes # (auto) 0.5 10 ^3/uL (0-1.3); Neutrophils # (auto) 4.8 10 ^3/uL (1.6-8.6); White Blood Cell 6.1 10^3/uL (4.4-10.8)
[2024-01-20 06:57] LABS: Basophils % (auto) 0.7 % (0.0-2.0); Hematocrit 31.6 % (41.0-53.0); Hemoglobin 10.8 g/dL (13.5-17.5); Mean Corpuscular Hemoglobin 27.2 pg (28.0-32.0); Mean Corpuscular Hgb Conc. 34.3 g/dL (32.0-36.0); Mean Corpuscular Volume 79.3 fL (80.0-100.0); Monocytes % (auto) 8.2 % (0.0-12.0); Neutrophils % (auto) 79.1 % (37.0-80.0); Nucleated Red Blood Cells % 0.2 %; Red Blood Cells 3.99 10^6/uL (4.5-5.90); Red Cell Distribution Width 16.5 % (11.8-14.3)
[2024-01-20 07:07] LABS: Alanine Aminotransferase 740 U/L (7-40); Albumin 3.1 g/dL (3.2-4.8); Alkaline Phosphatase 324 U/L (46-116); Anion Gap 6 (5-15); Aspartate Aminotransferase 525 U/L (13-40); Bilirubin, Total 1.8 mg/dL (0.2-1.0); Blood Urea Nitrogen 10 mg/dL (9-23); Calcium 8.5 mg/dL (8.7-10.4); Carbon Dioxide 27 mmol/L (20-30); Chloride 103 mmol/L (98-107); Glucose 94 mg/dL (74-106); Potassium 3.4 mmol/L (3.5-5.1); Sodium 136 mmol/L (136-145); Total Protein 5.4 g/dL (5.7-8.2)
[2024-01-20] MEDS: MAGNESIUM OXIDE 400 MG TAB PO ONE (10:25)
[2024-01-20] MEDS: LOSARTAN POTASSIUM 50 MG TAB PO SCH (10:26)
[2024-01-20] MEDS: amLODIPine BESYLATE 5 MG TAB PO SCH (13:43)
[2024-01-21] MEDS ORDERED: amLODIPine BESYLATE 5 MG TAB PO SCH (10:00)
== END 2024-01-20 17:47 | disposition home or self-care (01) | DRG 682 ==
LOC: EDBD 14:01 → ER 14:01 → OVERFLOW 21:17 → EAST 21:17
PROVIDERS: ADMIT Internal Medicine; ATTEND Internal Medicine
DX: N17.0 Acute kidney failure with tubular necrosis (principal); J18.9 Pneumonia, unspecified organism; K83.1 Obstruction of bile duct; K65.4 Sclerosing mesenteritis; K56.609 Unspecified intestinal obstruction, unspecified as to partial versus complete obstruction; E87.1 Hypo-osmolality and hyponatremia; D64.9 Anemia, unspecified; E87.6 Hypokalemia; I10 Essential (primary) hypertension; F41.9 Anxiety disorder, unspecified; K21.9 Gastro-esophageal reflux disease without esophagitis; I49.5 Sick sinus syndrome; Z79.899 Other long term (current) drug therapy; Z83.3 Family history of diabetes mellitus; Z82.49 Family history of ischemic heart disease and other diseases of the circulatory system
CPT/HCPCS: 36415; 71046; 74018; 74176; 74181; 78226; 80053; 80074; 80307; 80329; 81001; 82248; 83010; 83605; 83615; 83690; 83735; 83880; 84484; 85025; 86038; 86141; 86301; 86703; 86880; 93005; 93306; 96360; 97163; G0378; J3480